=== PATIENT | female | born 1960 | race Two or more races ===

== ENCOUNTER 2024-03-18 06:31 | Emergency (ER) | payer MEDICAID, SELFPAY ==
[2024-03-18 06:31] VITALS: BMI 45.8
[2024-03-18 06:42] VITALS: BP 158/86; PULSE 77; RESP 17; TEMP 37.2; O2SAT 98
--- NOTE | 2024-03-18 06:52 | EDNOTE_ITS ---
<Statement entered by Nhi Steward MD - 03/19/24 09:19> As co-signing physician, I was present and available for consult prn. I concur with the plan and care as documented by the midlevel provider. ED Back Injury Pain RME/HPI General Chief Complaint: Back Pain/Injury Stated Complaint: UPPER BACK PAIN X LAST NIGHT Time Seen by Provider: 03/18/24 06:37 Arrival date/time: 03/18/24 06:31 63-year-old female presents emergency department today complains of the mid upper back pain worse with movement patient reports history of the same. Patient reports no fever nausea vomiting no chest pain or shortness of breath no headache dizziness or weakness Limitations: no limitations Related Data Home Medications ?Medication ?Instructions ?Recorded ?Confirmed cyclobenzaprine 5 mg tablet 5 mg PO QDAY 11/12/19 10/03/20 metformin 500 mg tablet 500 mg PO BID 11/12/19 10/03/20 trazodone 50 mg tablet 50 mg PO ACHS 10/03/20 10/03/20 Previous Rx's ?Medication ?Instructions ?Recorded hydrocodone 5 mg-acetaminophen 325 1 tab PO Q8H PRN pain #10 tabs 04/16/ mg tablet naproxen 500 mg tablet 500 mg PO BID #30 tabs 06/16/23 cyclobenzaprine 10 mg tablet 10 mg PO TID PRN muscle spasm 10 03/18/24 days #30 tab-caps hydrocodone 5 mg-acetaminophen 325 1 tab PO BID PRN pain #10 tabs 03/18/24 mg tablet ibuprofen 800 mg tablet 800 mg PO TID PRN pain #30 tabs 03/18/24 Allergies Allergy/AdvReac Type Severity Reaction Status Date / Time No Known Allergies Allergy Verified 03/18/24 06:33 Review of Systems Review of Systems Systems Reviewed: All systems reviewed, normal except as documented Constitutional Constitutional: Reports system reviewed and no additional complaints, except as documented, Denies fever(s) and Denies headache(s) Eyes Eyes: Reports system reviewed and no additional complaints, except as documented and Denies blurry vision ENT Ears, Nose, Mouth, and Throat: Reports system reviewed and no additional complaints, except as documented, Denies headache(s), Denies nasal congestion and Denies nasal discharge Cardiovascular Cardiovascular: Reports system reviewed and no additional complaints, except as documented, Denies chest pain and Denies dyspnea Respiratory Respiratory: Reports system reviewed and no additional complaints, except as documented, Denies chest congestion, Denies cough and Denies dyspnea Gastrointestinal Gastrointestinal: Reports system reviewed and no additional complaints, except as documented and Denies abdominal pain Musculoskeletal Musculoskeletal: Reports system reviewed and no additional complaints, except as documented and Reports back pain Integumentary/Breasts Skin/Breast: Reports system reviewed and no additional complaints, except as documented and Denies rash Neurologic Neurologic: Reports system reviewed and no additional complaints, except as documented, Reports as per HPI and Denies headache(s) Past Medical History Past Medical History CARDIAC: Positive Hypercholesterolemia and Hypertension; Negative Congestive Heart Failure RESPIRATORY: Positive Sleep Apnea; Negative Chronic Obstructive Pulmonary Disease (COPD) GENITOURINARY: Negative Renal Disease ENDOCRINE: Positive Diabetes Mellitus Type 2; Negative Diabetes Mellitus Type 1 Surgical History SURGICAL: Positive Section Social History SMOKING STATUS: Never smoker ED Exam General Limitations: Present no limitations General appearance: Present alert and in no apparent distress Head Head exam: Present atraumatic, normocephalic and normal inspection Eye Eye exam: Present normal appearance, PERRL and EOMI; Absent conjunctival injection ENT ENT exam: Present normal exam, normal oropharynx and mucous membranes moist Neck Neck exam: Present normal inspection, full ROM and trachea midline Chest Chest inspection: Present normal inspection and symmetric chest wall rise Respiratory Respiratory exam: Present normal lung sounds bilaterally; Absent respiratory dis tress Cardiovascular Cardiovascular exam: Present regular rate, normal rhythm and normal heart sounds Abdominal Exam Abdominal exam: Present soft and normal bowel sounds; Absent distention, tenderness, guarding, rebound or rigidity Extremities Exam Extremities exam: Present normal inspection and full ROM Back Exam Back exam: Present normal inspection, full ROM, tenderness, muscle spasm and paraspinal tenderness; Absent CVA tenderness (R), CVA tenderness (L) or vertebral tenderness Neurological Exam Neurological exam: Present alert, oriented X3 and CN II-XII intact Psychiatric Psychiatric exam: Present normal affect and normal mood Skin Skin exam: Present warm, dry, intact and normal color Course Quality Measures none Orders Category Date Time Status Ketorolac Inj [Toradol Inj] Med 03/18/24 06:53 Discontinued 30 mg IM X1 ONE Vital Signs Vital signs: Vital Signs Temperature 99.0 F 03/18/24 06:42 Pulse Rate 77 03/18/24 06:42 Respiratory Rate 17 03/18/24 06:42 Blood Pressure 158/86 H 03/18/24 06:42 Pulse Oximetry (%) 98 03/18/24 06:42 Oxygen Delivery Method Room Air 03/18/24 06:42 O2 saturation 98% room air within normal limits Back Pain / Injury MDM Narrative MDM Narrative:: 63-year-old female presents emergency department today complains of the mid upper back pain worse with movement patient reports history of the same. Patient reports no fever nausea vomiting no chest pain or shortness of breath no headache dizziness or weakness On exam patient well-appearing patient does not appear ill or toxic patient is no difficulty breathing or swallowing On exam patient does have tenderness left upper back on palpation and worse with movement Symptoms appear to be mild Patient given Toradol shot and discharged home with medication I did explain to the patient for symptoms persist or worsen she may need imaging for further evaluation of her pain Patient discharged home in no distress to follow-up with primary care doctor in the next 24 to 48 hours and for any worsening symptoms to return to the ER immediately Patient data External records reviewed:: [facility] previous records Clinical information provided by:: patient Social determinants that could affect healthcare access:: none Patient has the following chronic illnesses:: See history How is presenting disease/condition affected by chronic disease/condition?: exacerbated by Evaluation data The following diagnostics were reviewed and interpreted by me:: other (specify) (N/A) Lab and/or radiology exams considered but not ordered:: Consider not ordered Interpretation Summary: N/A Medications / Prescriptions Medications or Prescriptions considered but not ordered:: Given Medication administrations:: Medication Administration History Discontinued Medications Ketorolac Tromethamine (Ketorolac Inj 30 Mg/Ml Vial) 30 mg IM X1 ONE Stop: 03/18/24 06:54 Last Admin: 03/18/24 07:01 Dose: 30 mg Documented By: RYAN Given Consultations Consultation(s) initiated? (list below): No Diagnosis Differential diagnosis back pain/injury: lumbar radiculopathy, strain of lumbar region and thoracic back pain Most likely diagnosis given after review of the tests above:: Back pain Admission Indicated Admission indicated?: not indicated Admission Request Was there a request for admission?: No Disposition Plan Disposition Plan: Discharge Discharge Attestation Discharge Attestation: The patient and all family members were given an opportunity to ask questions and understood the discharge instructions. Discharge instructions specifically effects, indications for sooner follow up or return to the emergency department, and the expected course of current diagnosis. Patient condition: Stable Discharge Plan Plan Patient Disposition: HOME (Self Care) Disposition Comment: stable Prescriptions/Referrals Prescriptions/Med Rec: New cyclobenzaprine 10 mg tablet 10 mg PO TID PRN (Reason: muscle spasm) 10 Days Qty: 30 0RF ibuprofen 800 mg tablet 800 mg PO TID PRN (Reason: pain) Qty: 30 0RF hydrocodone-acetaminophen 5-325 mg tablet 1 tab PO BID MDD 10 PRN (Reason: pain) Qty: 10 0RF No Action metformin 500 mg Tablet 500 mg PO BID cyclobenzaprine 5 mg Tablet 5 mg PO QDAY trazodone 50 mg tablet 50 mg PO ACHS hydrocodone-acetaminophen 5-325 mg tablet 1 tab PO Q8H MDD 3 PRN (Reason: pain) Qty: 10 0RF naproxen 500 mg tablet 500 mg PO BID Qty: 30 0RF Problem List Clinical Impression: Back muscle spasm Patient/Caregiver Discharge Instructions Education Materials: Back Safety: Lifting Additional Instructions: Please follow up with your primary care doctor in the next 24-48hrs for any worsening symptoms return here immediately Print Language: Sami Stand Alone Forms: Grace Award Info., Patient Portal Info Letter PA/[employer] Supervising Physician PA/REJI Supervising Physician: Dr. STEWARD
[2024-03-18] MEDS: KETOROLAC INJ 30 MG/ML VIAL IM (07:01)
== END 2024-03-18 07:05 | disposition home or self-care (01) ==
LOC: SERX 07:13
PROVIDERS: Emergency Provider Emergency Medicine; PCP Nurse Practitioner Family
DX: M62.830 Muscle spasm of back (principal)
CPT/HCPCS: 96372; 99283; J1885

== ENCOUNTER 2024-03-29 00:56 | Emergency (ER) | payer MEDICAID, SELFPAY ==
--- NOTE | 2024-03-29 | XR_ITS ---
Examination: CT abdomen and pelvis without contrast. Coronal 3-D reconstructions. Sagittal 2-D reconstructions. Date and time of exam:March 21, 2024 0230 hours Comparison April 16, 2021 INDICATIONS: Onset left-sided flank pain beginning one week ago CTDI: vol (mGy): 16.31 DLP: (mGycm): 1016 Technique: Axial images of the abdomen have been obtained, 3 mm slice thickness Intravenous contrast material has not been administered. Low dose protocols were performed. One or more of the following dose reduction techniques were used; automated exposure control, adjustment of the mA and/or KV according to patient size, use of iterative reconstruction technique. Findings: 5 mm calcified granuloma right middle lobe No focal liver or splenic lesions No gallstones No pancreatic or adrenal mass No renal or ureteral calculi, no hydronephrosis 8mm likely proteinaceous right renal cyst Significant scarring right kidney axial image 111 No renal or ureteral calculi, no hydronephrosis Abdominal aortic calcification no aneurysmal dilatation Normal appendix No bowel obstruction Atrophic uterus No adnexal mass No bladder mass or bladder calculi Moderate osteopenia IMPRESSION: Significant scarring right kidney No renal or ureteral calculi, no hydronephrosis Normal appendix No bladder mass or bladder calculi
[2024-03-29] MEDS: KETOROLAC INJ 30 MG/ML VIAL IM (02:25)
[2024-03-29 08:07] LABS: Alanine Aminotransferase 33 U/L (10-49); Albumin, Serum 4.7 gm/dL (3.4-4.8); Albumin/Globulin Ratio 1.8 (1.2-2.2); Alkaline Phosphatase 119 U/L (46-116); Anion Gap 8 (7-16); Aspartate Amino Transferase 31 U/L (0-34); BUN/Creatinine Ratio 18 Ratio (12-20); Bilirubin,Total 0.5 mg/dL (0.3-1.2); Blood Urea Nitrogen 18 mg/dL (9-23); Calcium 9.5 mg/dL (8.3-10.6); Calcium (Corrected) 9.5 mg/dL (8.5-10.1); Carbon Dioxide 26.9 mMol/L (20.0-31.0); Chloride 104 mMol/L (98-107); Globulin 2.6 gm/dL (2.3-3.5); Glucose 114 mg/dL (74-106); Osmolality,Calculated 280 (275-295); Potassium 3.7 mMol/L (3.4-5.1); Sodium 139 mMol/L (136-145); Total Protein 7.3 gm/dL (5.7-8.2); eGFR > 60 See Note
[2024-03-29 08:08] LABS: Basophils % (Auto) 1 % (0-2.5); Eosinophils # (Auto) 0.1 Thou/mm3 (0.0-0.5); Eosinophils % (Auto) 2 % (0-10); Hematocrit 40.1 % (36.0-46.0); Hemoglobin 13.4 g/dL (12.0-16.0); Immature Granulocytes % (Auto) 0 % (0-0); Immature Granulocytes Auto 0.01 Thou/mm3 (0.00-0.00); Lymphocytes # (Auto) 1.8 Thou/mm3 (1.0-4.8); Lymphocytes % (Auto) 31 % (10-50); Mean Corpuscular HGB Conc 33.4 g/dl (31.0-37.0); Mean Corpuscular Hemoglobin 29.9 pg (25.0-35.0); Mean Corpuscular Volume 90 fL (80-100); Monocytes # (Auto) 0.4 Thou/mm3 (0.0-0.8); Monocytes % (Auto) 7 % (0-12); Neutrophils # (Auto) 3.4 Thou/mm3 (1.8-7.7); Neutrophils % (Auto) 59 % (37-80); Nucleated Red Blood Cell % 0 /100 WBC (0); Platelet Count 195 Thou/mm3 (140-440); Red Blood Count 4.48 Miln/mm3 (4.00-5.20); White Blood Count 5.7 Thou/mm3 (3.6-11.0)
[2024-03-29 14:56] LABS: Clarity,Urine Clear (Clear/Hazy); Collection Type, Urine Clean Catch; Color,Urine Lt Yellow (Lt Yel-Yel)
[2024-03-29 14:57] LABS: Leukocyte Esterase,Urine 1+ (Negative); RBC,Urine 3 /hpf (0-3); Squamous Epithelial Cell,Urine 9 /hpf (0-5); WBC,Urine 6 /hpf (0-5)
[2024-03-29 15:01] LABS: Bilirubin,Urine Negative (Negative); Blood,Urine Negative (Negative); Culture Indicated,Urine Not Indicated; Glucose, Urine Negative (Negative); Ketones,Urine Negative (Negative); Nitrite,Urine Negative (Negative); Protein,Urine Negative (Neg - Trace); Specific Gravity,Urine 1.016 (1.001-1.035); Urobilinogen,Urine Negative mg/dL (0.0-1.0)
== END 2024-03-29 06:00 | disposition home or self-care (01) ==
LOC: SERX 05:53
PROVIDERS: Emergency Provider Emergency Medicine; PCP Nurse Practitioner Family
DX: M54.50 Low back pain, unspecified (principal); R10.9 Unspecified abdominal pain
CPT/HCPCS: 36415; 74176; 80053; 81001; 85025; 96372; 99284; J1885

== ENCOUNTER 2024-07-27 13:16 | Emergency (ER) | payer MEDICAID, SELFPAY ==
[2024-07-27 13:35] VITALS: BP 150/83; PULSE 90; RESP 20; TEMP 36.8; O2SAT 95; BMI 46.8
--- NOTE | 2024-07-27 13:39 | XR_ITS ---
Examination: Duplex scan of the lower extremity, unilateral left Date and time of exam: July 27, 2024 1351 hours INDICATIONS: Left foot swelling and pain beginning one week ago Technique: Duplex scan of the extremity veins using B-mode/grayscale imaging and Doppler spectral analysis and color flow Attention is directed to internal echogenicity, compression and augmentation involving these veins, color flow assessment, spectral analysis Findings: Major deep venous structures in the extremity demonstrate normal course and caliber. There is no evidence of deep vein thrombosis. Normal color flow and spectral analysis Impression: Negative for DVT..
--- NOTE | 2024-07-27 13:44 | PD.EDRME ---
Rapid Medical Screening Exam RME Arrival date/time: 07/27/24 13:16 63-year-old female with a history of type 2 diabetes presents to the emergency room with a chief complaint of swelling and tenderness to her left lower extremity x 3 days. Patient was sent over by primary care provider to rule out DVT. I have greeted and performed a focused initial assessment of this patient. A comprehensive ED assessment and evaluation of the patient, analysis of all test results, and completion of the medical decision making process will be conducted by additional ED providers. Chief Complaint: Ankle/Foot Injury Time Seen by Provider: 07/27/24 13:40 Vital signs: Vital Signs Temperature 98.3 F 07/27/24 13:35 Pulse Rate 90 07/27/24 13:35 Respiratory Rate 20 07/27/24 13:35 Blood Pressure 150/83 H 07/27/24 13:35 Pulse Oximetry (%) 95 07/27/24 13:35 Oxygen Delivery Method Room Air 07/27/24 13:35 Vital signs reviewed by provider: Yes
[2024-07-27 14:39] LABS: Basophils % (Auto) 1 % (0-2.5); Eosinophils # (Auto) 0.2 Thou/mm3 (0.0-0.5); Eosinophils % (Auto) 2 % (0-10); Hematocrit 41.3 % (36.0-46.0); Hemoglobin 13.8 g/dL (12.0-16.0); Immature Granulocytes % (Auto) 0 % (0-0); Immature Granulocytes Auto 0.02 Thou/mm3 (0.00-0.00); Lymphocytes # (Auto) 1.5 Thou/mm3 (1.0-4.8); Lymphocytes % (Auto) 17 % (10-50); Mean Corpuscular HGB Conc 33.4 g/dl (31.0-37.0); Mean Corpuscular Hemoglobin 30.1 pg (25.0-35.0); Mean Corpuscular Volume 90 fL (80-100); Monocytes # (Auto) 0.5 Thou/mm3 (0.0-0.8); Monocytes % (Auto) 6 % (0-12); Neutrophils # (Auto) 6.2 Thou/mm3 (1.8-7.7); Neutrophils % (Auto) 74 % (37-80); Nucleated Red Blood Cell % 0 /100 WBC (0); Platelet Count 261 Thou/mm3 (140-440); RDW Standard Deviation 43.4 fL (36.4-46.3); Red Blood Count 4.58 Miln/mm3 (4.00-5.20); White Blood Count 8.4 Thou/mm3 (3.6-11.0)
[2024-07-27 15:00] LABS: Alanine Aminotransferase 17 U/L (10-49); Albumin, Serum 4.8 gm/dL (3.4-4.8); Albumin/Globulin Ratio 1.7 (1.2-2.2); Alkaline Phosphatase 123 U/L (46-116); Anion Gap 8 (7-16); Aspartate Amino Transferase 21 U/L (0-34); BUN/Creatinine Ratio 13 Ratio (12-20); Bilirubin,Total 0.7 mg/dL (0.3-1.2); Blood Urea Nitrogen 15 mg/dL (9-23); Calcium 10.4 mg/dL (8.3-10.6); Calcium (Corrected) 10.4 mg/dL (8.5-10.1); Carbon Dioxide 27.6 mMol/L (20.0-31.0); Chloride 104 mMol/L (98-107); Creatinine (Component) 1.2 mg/dL (0.6-1.3); Globulin 2.9 gm/dL (2.3-3.5); Glucose 98 mg/dL (74-106); Osmolality,Calculated 280 (275-295); Potassium 4.2 mMol/L (3.4-5.1); Sodium 140 mMol/L (136-145); Total Protein 7.7 gm/dL (5.7-8.2); eGFR 51 See Note
[2024-07-27 15:11] LABS: Partial Thromboplastin Time 28.3 Seconds (22.0-36.0); Prothrombin Time 11.3 Seconds (9.0-12.2)
--- NOTE | 2024-07-27 16:37 | EDNOTE_ITS ---
<Statement entered by Nhi Steward MD - 07/27/24 16:52> As co-signing physician, I was present and available for consult prn. I concur with the plan and care as documented by the midlevel provider. Lower Extremity Injury RME/HPI General Chief Complaint: Ankle/Foot Injury Stated Complaint: LEFT FOOT SWOLLEN X 1 WK; PCP SENT FOR ULTRASOUND Time Seen by Provider: 07/27/24 13:40 Source: patient Arrival date/time: 07/27/24 13:16 63-year-old female with a history of type 2 diabetes presents to the emergency room with a chief complaint of swelling and tenderness to her left lower extremity x 3 days. Patient was sent over by primary care provider to rule out DVT. Mode of arrival: ambulatory Limitations: no limitations RME / HPI RME / HPI Narrative: 07/27/24 13:16 63-year-old female with a history of type 2 diabetes presents to the emergency room with a chief complaint of swelling and tenderness to her left lower extremity x 3 days. Patient was sent over by primary care provider to rule out DVT. I have greeted and performed a focused initial assessment of this patient. A comprehensive ED assessment and evaluation of the patient, analysis of all test results, and completion of the medical decision making process will be conducted by additional ED providers. Related Data Home Medications ?Medication ?Instructions ?Recorded ?Confirmed cyclobenzaprine 5 mg tablet 5 mg PO QDAY 11/12/1906/20 metformin 500 mg tablet 500 mg PO BID 11/12/1910/03 trazodone 50 mg tablet 50 mg PO ACHS 10/03/2010/03 Previous Rx's ?Medication ?Instructions ?Recorded hydrocodone 5 mg-acetaminophen 325 1 tab PO Q8H PRN pa in #10 tabs 04/16/21 mg tablet naproxen 500 mg tablet 500 mg PO BID #30 tabs 06/15 hydrocodone 5 mg-acetaminophen 325 1 tab PO BID PRN pa in #10 tabs 03/18/24 mg tablet ibuprofen 800 mg tablet 800 mg PO TID PRN pain #30 t abs 03/18/24 cephalexin 500 mg capsule 500 mg PO BID 7 days #14 cap s 07/27/24 Allergies Allergy/AdvReac Type Severity Reaction Status Date / Time No Known Allergies Allergy Verified 07/27/24 13:20 Review of Systems Review of Systems Systems Reviewed: All systems reviewed, normal except as documented Constitutional Constitutional: Reports system reviewed and no additional complaints, except as documented, Denies fatigue, Denies fever(s), Denies headache(s) and Denies weakness Eyes Eyes: Reports system reviewed and no additional complaints, except as documented, Denies blurry vision and Denies change in vision ENT Ears, Nose, Mouth, and Throat: Reports system reviewed and no additional c omplaints, except as documented, Denies otalgia, Denies headache(s), Denies nasal congestion, Denies throat swelling and Denies vertigo Cardiovascular Cardiovascular: Reports system reviewed and no additional complaints, except as documented, Denies chest pain, Denies dyspnea and Denies dyspnea on exertion Respiratory Respiratory: Reports system reviewed and no additional complaints, except as documented, Denies chest congestion, Denies cough, Denies dyspnea, Denies dyspnea on exertion and Denies wheezing Gastrointestinal Gastrointestinal: Reports system reviewed and no additional complaints, except as documented, Denies abdominal pain, Denies cramping, Denies nausea and Denies vomiting Genitourinary Genitourinary: Reports system reviewed and no additional complaints, except as documented Musculoskeletal Musculoskeletal: Reports system reviewed and no additional complaints, except as documented, Denies back pain, Reports joint swelling and Reports muscle weakness Integumentary/Breasts Skin/Breast: Reports system reviewed and no additional complaints, except as documented and Denies wounds Neurologic Neurologic: Reports system reviewed and no additional complaints, except as documented, Denies confusion, Denies headache(s), Denies lack of coordination, Denies vertigo and Denies weakness Psychiatric Psychiatric: Reports system reviewed and no additional complaints, except as documented, Denies anxiety, Denies confusion, Denies depression, Denies paranoia, Denies suicidal ideation and Denies tactile hallucinations Endocrine Endocrine: Reports system reviewed and no additional complaints, except as documented and Denies fatigue Hematologic/Lymphatic Hematologic/Lymphatic: Reports system reviewed and no additional complaints, except as documented and Denies lymphadenopathy Allergic/Immunologic Allergic/Immunologic: Reports system reviewed and no additional complaints, except as documented, Denies throat swelling, Denies urticaria and Denies wheezing Past Medical History Past Medical History CARDIAC: Positive Hypercholesterolemia and Hypertension; Negative Congestive Heart Failure RESPIRATORY: Positive Sleep Apnea; Negative Chronic Obstructive Pulmonary Disease (COPD) GENITOURINARY: Negative Renal Disease ENDOCRINE: Positive Diabetes Mellitus Type 2; Negative Diabetes Mellitus Type 1 Surgical History SURGICAL: Positive Section Social History SMOKING STATUS: Never smoker ED Exam General Limitations: Present no limitations General appearance: Present alert and in no apparent distress Head Head exam: Present atraumatic Eye Eye exam: Present normal appearance, PERRL and EOMI ENT ENT exam: Present normal exam, normal oropharynx and mucous membranes moist Neck Neck exam: Present normal inspection, full ROM and trachea midline Chest Chest inspection: Present normal inspection and symmetric chest wall rise Respiratory Respiratory exam: Present normal lung sounds bilaterally Cardiovascular Cardiovascular exam: Present regular rate, normal rhythm and normal heart sounds Abdominal Exam Abdominal exam: Present soft and normal bowel sounds Extremities Exam Extremities exam: Present normal inspection and full ROM Expanded Lower Extremity Exam Hip/Pelvis exam: Present normal inspection Upper leg exam: Present normal inspection Knee exam: Present normal inspection Lower leg exam: Present normal inspection, swelling and Homans' sign Ankle exam: Present normal inspection Foot/toe exam: Present normal inspection Gait: observed and normal Back Exam Back exam: Present normal inspection and full ROM Neurological Exam Neurological exam: Present alert, oriented X3 and CN II-XII intact Psychiatric Psychiatric exam: Present normal affect and normal mood Skin Skin exam: Present warm, dry, intact and normal color Course Quality Measures none Orders Category Date Time Status US venous doppler LE LT Stat Exams 07/27/24 13:39 Completed CBC Stat Lab 07/27/24 14:24 Completed CMP [Comprehensive Metabolic Panel] Stat Lab 07/27/24 14:24 Completed PT [Prothrombin Time with INR] Stat Lab 07/27/24 14:24 Completed PTT [Partial Thromboplastin Time] Stat Lab 07/27/24 14:24 Completed Vital Signs Vital signs: Vital Signs Temperature 98.3 F 07/27/24 13:35 Pulse Rate 90 07/27/24 13:35 Respiratory Rate 20 07/27/24 13:35 Blood Pressure 150/83 H 07/27/24 13:35 Pulse Oximetry (%) 95 07/27/24 13:35 Oxygen Delivery Method Room Air 07/27/24 13:35 O2 saturation 95% within normal limits Extremity Injury, Lower MDM Narrative MDM Narrative:: 63-year-old female with a history of type 2 diabetes presents to the emergency room with a chief complaint of swelling and tenderness to her left lower extremity x 3 days. Patient was sent over by primary care provider to rule out DVT. Patient is hemodynamically stable and in no apparent distress Physical examination shows tenderness and swelling to the patient's left lower extremity. The patient has some tenderness to the calf area with a positive Homans' sign as well as some warmth to the area. An ultrasound Doppler was completed and was negative for any DVT. Patient was discharged with antibiotics for cellulitis Patient was discharged and educated to follow-up with primary care provider in the next 24 to 48 hours and return to the emergency room for any evidence of worsening signs or symptoms Patient data External records reviewed:: [facility] previous records Clinical information provided by:: patient Social determinants that could affect healthcare access:: none Patient has the following chronic illnesses:: No chronic illness How is presenting disease/condition affected by chronic disease/condition?: no chronic disease Evaluation data The following diagnostics were reviewed and interpreted by me:: lab results and radiology exam(s) Lab and/or radiology exams considered but not ordered:: Labs and radiology exams considered and ordered Interpretation Summary: Ultrasound Doppler-Findings: Major deep venous structures in the extremity demonstrate normal course and caliber. There is no evidence of deep vein thrombosis. Normal color flow and spectral analysis Impression: Negative for DVT.. Medications / Prescriptions Medications or Prescriptions considered but not ordered:: No medication given Medication administrations:: No medication given Consultations Consultation(s) initiated? (list below): No Diagnosis Extremity Injury, Lower Differential Diagnosis: other (Cellulitis/DVT) Most likely diagnosis given after review of the tests above:: Cellulitis Admission Indicated Admission indicated?: not indicated Admission Request Was there a request for admission?: No Disposition Plan Disposition Plan: Discharge Discharge Attestation Discharge Attestation: The patient and all family members were given an opportunity to ask questions and understood the discharge instructions. Discharge instructions specifically effects, indications for sooner follow up or return to the emergency department, and the expected course of current diagnosis. Patient condition: Stable Discharge Plan Plan Patient Disposition: HOME (Self Care) Discharge Disposition comment: Stable Prescriptions/Referrals Prescriptions/Med Rec: New cephalexin 500 mg capsule 500 mg PO BID 7 Days Qty: 14 0RF No Action metformin 500 mg Tablet 500 mg PO BID cyclobenzaprine 5 mg Tablet 5 mg PO QDAY trazodone 50 mg tablet 50 mg PO ACHS hydrocodone-acetaminophen 5-325 mg tablet 1 tab PO Q8H MDD 3 PRN (Reason: pain) Qty: 10 0RF ibuprofen 800 mg tablet 800 mg PO TID PRN (Reason: pain) Qty: 30 0RF hydrocodone-acetaminophen 5-325 mg tablet 1 tab PO BID MDD 10 PRN (Reason: pain) Qty: 10 0RF naproxen 500 mg tablet 500 mg PO BID Qty: 30 0RF Referrals: Belkys Kimbrough PA-C [Primary Care Provider] - In 1 week Problem List Clinical Impression: Cellulitis of left leg Patient/Caregiver Discharge Instructions Education Materials: Discharge Instructions for Cellulitis, ED Cellulitis Additional Instructions: Please follow-up with your primary care provider in the next 24 to 48 hours Your ultrasound of your lower extremity was negative for any blood clot. Antibiotics are sent to your pharmacy please pick them up and take them as indicated For any evidence of worsening signs or symptoms return to the emergency room immediately Print Language: Urdu Stand Alone Forms: Grace Award Info., Patient Portal Info Letter DEIDRE/REJI Supervising Physician DEIDRE/REJI Supervising Physician: Dr. STEWARD
== END 2024-07-27 18:29 | disposition home or self-care (01) ==
PROVIDERS: Nurse Practitioner Family; Emergency Provider Emergency Medicine; PCP Physician Assistant
DX: L03.116 Cellulitis of left lower limb (principal); E11.9 Type 2 diabetes mellitus without complications
CPT/HCPCS: 36415; 80053; 85025; 85610; 85730; 93971; 99284

== ENCOUNTER → 2024-08-23 | Outpatient (CLI) | payer MEDICAID, SELFPAY ==
--- NOTE | 2024-08-23 10:46 | XR_ITS ---
Examination: PA lateral chest 2 views TECHNIQUE: Upright PA lateral chest 2 views Date and time: August 23, 2024 1058 hours INDICATIONS: Coughing beginning 2 weeks ago. FINDINGS: Normal heart size. Lungs are clear. The osseous structures are intact IMPRESSION: No active disease
== END | disposition home or self-care (01) ==
DX: R05.9 Cough, unspecified (principal)
CPT/HCPCS: 71046

== ENCOUNTER 2024-10-25 10:38 | Outpatient (AMB) | payer MEDICAID, SELFPAY ==
--- NOTE | 2024-10-25 11:12 | GYNCLNT_ITS ---
Vital Signs 10/25/24 11:13 Height 1.52 m Height Method Measured Weight 109.939 kg Weight Measurement Method Standing Scale BMI 47.3 BP 114/80 Blood Pressure Source Automatic Cuff Blood Pressure Location Right Upper Arm Position Sitting Respiration 17 Pulse 70 Pulse Source Monitor Temp 98.0 F Temp Source Temporal Artery Scan Pulse Oximetry (%) 95 Oxygen Delivery Method Room Air Allergies/Home Meds Allergies & Medications Allergies No Known Allergies Allergy (Verified 10/25/24 11:13) Medication Reconciliation cyclobenzaprine 5 mg tablet 5 mg PO QDAY 11/12/19 [History Confirmed 10/25/24] metformin 500 mg tablet 500 mg PO BID 11/12/19 [History Confirmed 10/25/24] trazodone 50 mg tablet 50 mg PO ACHS 10/03/20 [History Confirmed 10/25/24] hydrocodone 5 mg-acetaminophen 325 mg tablet 1 tab PO Q8H PRN pain #10 tabs 04/16/21 [Rx Confirmed 10/25/24] naproxen 500 mg tablet 500 mg PO BID #30 tabs 06/16/23 [Rx Confirmed 10/25/24] hydrocodone 5 mg-acetaminophen 325 mg tablet 1 tab PO BID PRN pain #10 tabs 03/18/24 [Rx Confirmed 10/25/24] ibuprofen 800 mg tablet 800 mg PO TID PRN pain #30 tabs 03/18/24 [Rx Confirmed 10/25/24] Intake Visit Data Collection New Patient or Established: Established Patient (seen at [facility] within 3 years) Reason for Visit:: REF COLPO CONSULT Consent obtained for Telemed Visit: No Seen by Clinical Staff ONLY (RN/MA): No Plow Shaker Required: No Do You Feel Safe at Home: Yes Authorities Contacted: N/A PCP or OBGYN visit in last 3 months: Yes Date of Last PCP or OBGYN visit: 07/27/24 Hx Now: No Are you currently on any form of Control: No Last menstrual period: 03/02/09 Pain Present Currently: No Pain Scale Used: Silva-Roach/Numerical Pain scale:: 0 Smoking Status Smoking Status: Never smoker Manager Statistics history Manager Statistics History Menstrual regularity: regular Flow: normal Monthly: Yes How many days does period last: 7 Age at menarche: 12 Menopausal: Yes If menopausal, at what age did it occur: 48 Currently sexually active: Yes 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 1. Little interest or pleasure in doing things: not at all 2. Feeling down, depressed, or hopeless: not at all Total score: 0 PHQ-9 3. Trouble falling or staying asleep, or sleeping too much: Not at all 4. Feeling tired or having little energy: Not at all 5. Poor appetite or overeating: Not at all 6. Feeling bad about yourself - or that you are a failure or have let yourself or your family down: Not at all 7. Trouble concentrating on things, such as reading the newspaper or watching television: Not at all 8. Moving or speaking so slowly that other people could have noticed? - Or the opposite - being so fidgety or restless that you have been moving around a lot more than usual: not at all 9. Thoughts that you would be better off or of hurting yourself in some way: Not at all Total score: 0 If you checked off any problems, how difficult have these problems made it for you to do your work, take care of things at home, or get along with other people?: not difficult at all Source: Developed by Drs. Alvarado Ocampo, Love Stein, Cuong Bella and colleagues, with an educational dorita from [employer]. Social History Living Situation History Lives With: Family Housing: House Tobacco History Smoking Status: Never smoker Alcohol History Alcohol Intake: Never Domestic Abuse History Do You Feel Safe at Home: Yes History of Present Illness HPI Narrative Chief Complaint Consultation for abnormal pap smear Patient is a 63-year-old presenting for consultation regarding an abnormal Pap smear. She had a Pap smear performed in April of this year at Dr. Pablo's office at [facility], which revealed ASCUS (Atypical Squamous Cells of Undetermined Significance) with HPV positive results. HPV genotyping was not performed at that time. The patient has not reported any specific sympt oms related to the abnormal Pap smear findings. She reports a history of urinary frequency and incontinence but denies any other medical complications. Medical History: - Diabetes - Hypercholesterolemia - Urinary frequency/incontinence Surgical History: - Multiple C-sections Obstetric History: - GPAL: A0 L4 - All deliveries were by C-sections Diagnostic Test Results and Labs: - Pap smear (April 2024): ASCUS (Atypical Squamous Cells of Undetermined Significance) - HPV test (April 2024): Positive Exam General General Appearance: alert, in no apparent distress and healthy appearing Head Head exam: atraumatic Neck Neck exam: Present normal inspection and trachea midline Chest Chest inspection: Present normal inspection and symmetric chest wall rise External exam: Present normal external exam; Absent tenderness Neuro Neurological exam: Present oriented X3 Psych Psychiatric exam: Present normal affect and normal mood Office Procedures OB Clinic LOC & Office Proc's Nursing/Assessment Patient Status: Established Patient OB Clinic Nursing Assessment: Medication Reconciliation, Update PMH in EMR and Vital Signs OB Clinic Coordination of Care: Complex Care and Chronic Disease 1-5, Consent,records obtained, informed consent and Education Simp Pt/Fam Established Patient Charge Established Patient Point Assignment: 75 Established Patient Point Charge: EP Level 2 (40-75) Assessment & Plan Diagnosis / Problem List (1) ASCUS (atypical squamous cells of undetermined significance) on gynecologic Papanicolaou smear complicating , antepartum: Status: Acute Plan Abnormal Pap smear (ASCUS) with positive HPV Assessment: Patient had a Pap smear in April [address] Pablo's office at [facility], which showed Atypical Squamous Cells of Undetermined Significance (ASCUS) with positive HPV test. HPV genotyping was not performed at that time. This represents the least severe category of cervical cytologic abnormalities. The combination of ASCUS and positive HPV increases the risk of progression to higher-grade lesions or cervical cancer. Given the patient's age of 63, there is a lower likelihood of finding cancer or precancer, as these conditions are more common in the forties and fifties. Plan: - Perform colposcopy with cervical biopsy in office - Obtain 2 biopsy samples - Informed consent obtained; patient advised of procedure details, including use of speculum and colposcope - Patient chose to proceed without sedation after being offered the option - HPV subtyping to be performed on biopsy specimen, focusing on types 16, 18, and 45 - Follow-up plan based on biopsy results: If high-risk HPV subtypes (16, 18, or 45) are positive, consider cervical conization - If high-risk HPV subtypes are negative, repeat biopsy in one year - Submit insurance authorization for colposcopy procedure - Schedule colposcopy appointment and contact patient with details
[2024-10-25 11:13] VITALS: BP 114/80; PULSE 70; RESP 17; TEMP 36.7; O2SAT 95; BMI 47.3
== END 2024-10-25 11:43 | disposition home or self-care (01) ==
LOC: HODSOBC 10:38
PROVIDERS: Supervising Provider Obstetrics & Gynecology; Visit Provider Obstetrics & Gynecology
DX: R87.610 Atypical squamous cells of undetermined significance on cytologic smear of cervix (ASC-US) (principal); R87.810 Cervical high risk human papillomavirus (HPV) DNA test positive
CPT/HCPCS: 99212; G0463

== ENCOUNTER 2024-11-30 08:39 | Outpatient (AMB) | payer MEDICAID, SELFPAY ==
--- NOTE | 2024-11-30 09:05 | AMB.GYNCLNOT ---
Vital Signs 11/30/24 09:06 Height 1.52 m Height Method Stated Weight 113.001 kg Weight Measurement Method Standing Scale BMI 48.9 BP 137/60 H Blood Pressure Source Automatic Cuff Blood Pressure Location Left Upper Arm Position Sitting Respiration 16 Pulse 87 Pulse Source Monitor Temp 98.2 F Temp Source Oral Pulse Oximetry (%) 99 Oxygen Delivery Method Room Air Allergies/Home Meds Allergies & Medications Allergies No Known Allergies Allergy (Verified 11/30/24 09:07) Medication Reconciliation cyclobenzaprine 5 mg tablet 5 mg PO QDAY 11/12/19 [History Confirmed 11/30/24] metformin 500 mg tablet 500 mg PO BID 11/12/19 [History Confirmed 11/30/24] trazodone 50 mg tablet 50 mg PO ACHS 10/03/20 [History Confirmed 11/30/24] hydrocodone 5 mg-acetaminophen 325 mg tablet 1 tab PO Q8H PRN pain #10 tabs 04/16/21 [Rx Confirmed 11/30/24] naproxen 500 mg tablet 500 mg PO BID #30 tabs 06/16/23 [Rx Confirmed 11/30/24] hydrocodone 5 mg-acetaminophen 325 mg tablet 1 tab PO BID PRN pain #10 tabs 03/18/24 [Rx Confirmed 11/30/24] ibuprofen 800 mg tablet 800 mg PO TID PRN pain #30 tabs 03/18/24 [Rx Confirmed 11/30/24] Intake Visit Data Collection New Patient or Established: Established Patient (seen at [facility]) Reason for Visit:: COLPO Seen by Clinical Staff ONLY (RN/MA): No Flash Drier Operator Required: No Do You Feel Safe at Home: Yes Authorities Contacted: N/A PCP or OBGYN visit in last 3 months: Yes Date of Last PCP or OBGYN visit: 10/25/24 Hx Now: No Are you currently on any form of Control: No Pain Present Currently: No Pain Scale Used: Silva-Roach/Numerical Pain scale:: 0 Smoking Status Smoking Status: Never smoker 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 1. Little interest or pleasure in doing things: not at all 2. Feeling down, depressed, or hopeless: not at all Total score: 0 PHQ-9 3. Trouble falling or staying asleep, or sleeping too much: Not at all 4. Feeling tired or having little energy: Not at all 5. Poor appetite or overeating: Not at all 6. Feeling bad about yourself - or that you are a failure or have let yourself or your family down: Not at all 7. Trouble concentrating on things, such as reading the newspaper or watching television: Not at all 8. Moving or speaking so slowly that other people could have noticed? - Or the opposite - being so fidgety or restless that you have been moving around a lot more than usual: not at all 9. Thoughts that you would be better off or of hurting yourself in some way: Not at all Total score: 0 If you checked off any problems, how difficult have these problems made it for you to do your work, take care of things at home, or get along with other people?: not difficult at all Source: Developed by Drs. Alvarado Ocampo, Love Stein, Cuong Bella and colleagues, with an educational dorita from [employer]. Depression screen completed yes Social History Living Situation History Lives With: Family Housing: House Tobacco History Smoking Status: Never smoker Alcohol History Alcohol Intake: Never Domestic Abuse History Do You Feel Safe at Home: Yes History of Present Illness HPI Narrative Liset Virgen presents for a follow-up visit with planned biopsies that were deferred due to active infections. The patient reports having a urinary tract infection for which she has been taking prescribed oral antibiotics since Thursday, making today the third day of treatment on a 7-day course. She also reports vaginal symptoms including discharge and odor, which she describes as having been present for an unspecified duration. During the attempted examination, the patient experienced significant pain and discomfort, particularly when the clinician attempted to introduce the speculum. She reports itching in the areas being examined. The patient's symptoms appear to be interfering with the planned procedure, as the examination had to be discontinued due to her discomfort and the presence of inflammation. Medications: - Antibiotics for UTI for 7 days, started Thursday, prescribed by doctor Exam Narrative Physical exam: - Genitourinary: Vaginal area appears red and inflamed. Solid mass present with scarring of the vaginal mucosa. Unable to introduce speculum without causing significant pain. Vaginal discharge present with odor noted on examination. General General Appearance: alert, in no apparent distress and healthy appearing Head Head exam: atraumatic Neck Neck exam: Present normal inspection and trachea midline Chest Chest inspection: Present normal inspection and symmetric chest wall rise External exam: Present normal external exam; Absent tenderness Neuro Neurological exam: Present oriented X3 Psych Psychiatric exam: Present normal affect and normal mood Office Procedures OBC Clinic LOC & Office Proc's Nursing/Assessment Patient Status: Established Patient OB Clinic Nursing Assessment: Medication Reconciliation, Update PMH in EMR and Vital Signs OB Clinic Coordination of Care: Education Complex Pt/Fam, Consent,records obtained, informed consent, Lab and Imaging orders, Results/Orders obtained and Staff clarify orders Miscellaneous Interventions: Pelvic no cultures Established Patient Charge Established Patient Point Assignment: 95 Established Patient Point Charge: EP Level 3 (80-115) In Clinic Procedures COLPOSCOPY OF VAGINA W/CERVIX IF PRESENT: Yes Assessment & Plan Diagnosis / Problem List (1) ASCUS (atypical squamous cells of undetermined significance) on gynecologic Papanicolaou smear complicating , antepartum: Status: Acute Plan Bacterial vaginitis Assessment: Patient has bacterial vaginitis with vaginal discharge, odor, and significant inflammation noted on examination. The vaginal mucosa shows scarring and inflammation severe enough to prevent speculum insertion without causing significant pain. This infection needs to be treated before any planned procedures can be performed to avoid spreading infection. Plan: - Prescribe vaginal antibiotic cream for 7 days - Defer planned biopsy procedure until after completion of treatment - Schedule procedure after 7-day treatment course, to be performed under sedation in hospital setting similar to colonoscopy sedation Urinary tract infection Assessment: Patient has UTI and is currently taking oral antibiotics prescribed by her doctor, started on Thursday (3 days of treatment completed as of visit date). Patient reports taking prescribed antibiotics for 7-day course. Plan: - Continue current oral antibiotic course for full 7 days as prescribed - Current antibiotic should adequately cover bladder infection Solid vaginal mass Assessment: Patient has a solid mass with associated vaginal mucosal scarring. Physical examination reveals inability to introduce speculum without causing significant pain due to associated inflammation and infection. Biopsy of this mass-like structure is planned but deferred due to current infectious process. Plan: - Defer biopsy until after treatment of vaginal infection - Perform examination and biopsy under anesthesia in hospital setting - Staff will coordinate scheduling for procedure after completion of antibiotic treatment
[2024-11-30 09:06] VITALS: BP 137/60; PULSE 87; RESP 16; TEMP 36.8; O2SAT 99; BMI 48.9
== END 2024-11-30 09:47 | disposition home or self-care (01) ==
LOC: HODSOBC 08:39
PROVIDERS: Supervising Provider Obstetrics & Gynecology; Visit Provider Obstetrics & Gynecology
DX: N76.0 Acute vaginitis (principal); N39.0 Urinary tract infection, site not specified; N89.8 Other specified noninflammatory disorders of vagina; E11.9 Type 2 diabetes mellitus without complications; I10 Essential (primary) hypertension; Z79.84 Long term (current) use of oral hypoglycemic drugs; Z79.899 Other long term (current) drug therapy; Z53.8 Procedure and treatment not carried out for other reasons
CPT/HCPCS: 57420; 99213; J3490; G0463

== ENCOUNTER 2025-02-01 11:28 | Outpatient (AMB) | payer MEDICAID, SELFPAY ==
[2025-02-01 11:36] VITALS: BP 135/62; PULSE 87; RESP 18; TEMP 36.1; O2SAT 98; BMI 50.4
--- NOTE | 2025-02-01 11:36 | GYNCLNT_ITS ---
Vital Signs 02/01/25 11:36 Height 1.52 m Height Method Stated Weight 116.573 kg Weight Measurement Method Standing Scale BMI 50.4 BP 135/62 H Blood Pressure Source Automatic Cuff Blood Pressure Location Left Upper Arm Position Sitting Respiration 18 Pulse 87 Pulse Source Monitor Temp 97 F Temp Source Temporal Artery Scan Pulse Oximetry (%) 98 Oxygen Delivery Method Room Air Allergies/Home Meds Allergies & Medications Allergies No Known Allergies Allergy (Verified 02/01/25 11:41) Medication Reconciliation metformin 500 mg tablet 500 mg PO BID 11/12/19 [History Confirmed 02/01/25] amlodipine 10 mg tablet 10 mg PO DAILY 02/01/25 [History Confirmed 02/01/25] atorvastatin 20 mg tablet 20 mg PO DAILY 02/01/25 [History Confirmed 02/01/25] Intake Visit Data Collection New Patient or Established: Established Patient (seen at [facility] within 3 years) Reason for Visit:: PREOP Seen by Clinical Staff ONLY (RN/MA): No Gang Sawyer Required: No Do You Feel Safe at Home: Yes Authorities Contacted: N/A PCP or OBGYN visit in last 3 months: Yes Hx Now: No Are you currently on any form of Control: No Pain Present Currently: No Pain Scale Used: Silva-Roach/Numerical Pain scale:: 0 Smoking Status Smoking Status: Never smoker Immunizations Flu Vaccine in the Last 12 Months: No Flu Vaccine Exclusion Criteria: No Exclusion Criteria 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 Menstrual regularity: regular Flow: normal Monthly: Yes Menopausal: No 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 1. Little interest or pleasure in doing things: not at all 2. Feeling down, depressed, or hopeless: not at all Total score: 0 PHQ-9 3. Trouble falling or staying asleep, or sleeping too much: Not at all 4. Feeling tired or having little energy: Not at all 5. Poor appetite or overeating: Not at all 6. Feeling bad about yourself - or that you are a failure or have let yourself or your family down: Not at all 7. Trouble concentrating on things, such as reading the newspaper or watching television: Not at all 8. Moving or speaking so slowly that other people could have noticed? - Or the opposite - being so fidgety or restless that you have been moving around a lot more than usual: not at all 9. Thoughts that you would be better off or of hurting yourself in some way: Not at all Total score: 0 If you checked off any problems, how difficult have these problems made it for you to do your work, take care of things at home, or get along with other people?: not difficult at all Source: Developed by Drs. Alvarado Ocampo, Love Stein, Cuong Bella and colleagues, with an educational dorita from [employer]. Depression screen completed yes Social History Living Situation History Lives With: Family Housing: House Tobacco History Smoking Status: Never smoker Alcohol History Alcohol Intake: Never Domestic Abuse History Do You Feel Safe at Home: Yes History of Present Illness HPI Narrative Liset Virgen presents for pre-procedural consultation and questions, scheduled for a procedure tomorrow morning. She has sleep apnea and uses a machine for this condition. The patient cares for her disabled at home, assisting with transfers from bed to chair and general nursing care. Her grandson will be available to help her tomorrow following the procedure. The patient lives with her disabled whom she provides care for, including assistance with transfers from bed to chair and general nursing care. She has a grandson who provides assistance when needed. ROS: Respiratory: Positive for sleep apnea. Negative except as stated above, limited to CARD CUTTER HELPER and pertinent complaints. Exam General General Appearance: alert, in no apparent distress and healthy appearing Head Head exam: atraumatic Neck Neck exam: Present normal inspection and trachea midline Chest Chest inspection: Present normal inspection and symmetric chest wall rise External exam: Present normal external exam; Absent tenderness Neuro Neurological exam: Present oriented X3 Psych Psychiatric exam: Present normal affect and normal mood Office Procedures OBC Clinic LOC & Office Proc's Nursing/Assessment Patient Status: Established Patient OB Clinic Nursing Assessment: Medication Reconciliation, Update PMH in EMR and Vital Signs OB Clinic Coordination of Care: Consent,records obtained, informed consent, Education Simp Pt/Fam, Lab and Imaging orders, Results/Orders obtained and Staff clarify orders Established Patient Charge Established Patient Point Assignment: 80 Established Patient Point Charge: EP Level 3 (80-115) Assessment & Plan Diagnosis / Problem List (1) ASCUS with positive high risk HPV: Status: Acute Plan Cervical Lesion Requiring Biopsy: - Patient scheduled for cervical procedure with biopsy. - Anticipate precancerous findings rather than invasive cancer based on current evaluation. - Sleep apnea noted as comorbid condition requiring perioperative management. Plan: - Cervical procedure scheduled for tomorrow at 8:30 AM with check-in at 7:30 AM. - General anesthesia planned with supplemental oxygen via mask due to sleep apnea. - Procedure duration approximately 5 minutes with total anesthesia time 15 minutes. - Post-operative restrictions for 72 hours: ? No vaginal penetration (no sex, douching, tampons). ? Avoid heavy lifting for couple days given patient's caregiving responsibilities. ? No other activity restrictions; patient may shower, eat, travel normally. - Biopsy results available in 7 days with phone call notification. - If cancer diagnosed, referral to gynecologic oncologist. - If precancerous lesion, current procedure should be sufficient treatment. - Patient counseled that radiation therapy precedes surgery for this cancer type if malignancy confirmed. Advanced Care Planning Advance care planning discussed with:: patient
== END 2025-02-01 11:48 | disposition home or self-care (01) ==
LOC: HODSOBC 11:28
PROVIDERS: Supervising Provider Obstetrics & Gynecology; Visit Provider Obstetrics & Gynecology
DX: R87.610 Atypical squamous cells of undetermined significance on cytologic smear of cervix (ASC-US) (principal); R87.810 Cervical high risk human papillomavirus (HPV) DNA test positive
CPT/HCPCS: 99213; G0463

== ENCOUNTER 2025-02-02 06:50 | Day surgery (SDC) | payer MEDICAID, SELFPAY ==
[2025-02-01 07:51] VITALS: BMI 50.3
--- NOTE | 2025-02-01 08:05 | EKG_ITS ---
[facility] Test Date: 2025-02-01 Pat Name: ARTIS MILLER Department: Room: - Gender: Female Systems Analyst: WOJCIECH : 1960 Requested By: Jorge Keller Order Number: [id number] Reading MD: Jorge Keller Measurements Intervals [place] Rate: 72 P: 55 NM: 155 QRS: 34 QRSD: 87 T: 25 QT: 399 QTc: 439 Interpretive Statements SINUS RHYTHM MODERATE T-WAVE ABNORMALITY, CONSIDER ANTEROLATERAL ISCHEMIA [-0.1+ mV T WAVE IN V3-V6] Compared to ECG 05/18/2023 19:44:37 T-wave abnormality now present Possible ischemia now present Ventricular premature complex(es) no longer present /store/S0/[id number]/ecg/[id number].pdf
[2025-02-01 08:50] LABS: Basophils # (Auto) 0.0 Thou/mm3 (0.0-0.2); Basophils % (Auto) 1 % (0-2.5); Eosinophils # (Auto) 0.2 Thou/mm3 (0.0-0.5); Eosinophils % (Auto) 3 % (0-10); Hematocrit 43.0 % (36.0-46.0); Hemoglobin 13.6 g/dL (12.0-16.0); Immature Granulocytes Auto 0.02 Thou/mm3 (0.00-0.00); Lymphocytes # (Auto) 1.8 Thou/mm3 (1.0-4.8); Lymphocytes % (Auto) 31 % (10-50); Mean Corpuscular HGB Conc 31.6 g/dl (31.0-37.0); Mean Corpuscular Hemoglobin 28.9 pg (25.0-35.0); Mean Corpuscular Volume 91 fL (80-100); Monocytes # (Auto) 0.4 Thou/mm3 (0.0-0.8); Monocytes % (Auto) 7 % (0-12); Neutrophils # (Auto) 3.4 Thou/mm3 (1.8-7.7); Neutrophils % (Auto) 59 % (37-80); Nucleated Red Blood Cell # 0.00 Thou/mm3 (0.00-0.00); Nucleated Red Blood Cell % 0 /100 WBC (0); Platelet Count 232 Thou/mm3 (140-440); RDW Standard Deviation 46.4 fL (36.4-46.3); Red Blood Count 4.71 Miln/mm3 (4.00-5.20); White Blood Count 5.8 Thou/mm3 (3.6-11.0)
[2025-02-01 09:13] LABS: Alanine Aminotransferase 26 U/L (10-49); Albumin, Serum 4.6 gm/dL (3.4-4.8); Albumin/Globulin Ratio 1.6 (1.2-2.2); Alkaline Phosphatase 133 U/L (46-116); Anion Gap 6 (7-16); Aspartate Amino Transferase 28 U/L (0-34); BUN/Creatinine Ratio 12 Ratio (12-20); Bilirubin,Total 0.5 mg/dL (0.3-1.2); Blood Urea Nitrogen 12 mg/dL (9-23); Calcium 9.2 mg/dL (8.3-10.6); Calcium (Corrected) 9.2 mg/dL (8.5-10.1); Carbon Dioxide 29.8 mMol/L (20.0-31.0); Chloride 108 mMol/L (98-107); Creatinine (Component) 1.0 mg/dL (0.6-1.3); Estimated Creatinine Clearance 65.6 mL/min (>60); Globulin 2.8 gm/dL (2.3-3.5); Glucose 127 mg/dL (74-106); Osmolality,Calculated 288 (275-295); Potassium 4.4 mMol/L (3.4-5.1); Sodium 144 mMol/L (136-145); Total Protein 7.4 gm/dL (5.7-8.2); eGFR > 60 See Note
[2025-02-02] VITALS (7 sets, daily range): BP systolic 85–150; BP diastolic 45–81; PULSE 76–90; RESP 13–20; TEMP 36.2–36.6; O2SAT 93–99; BMI 50.5
--- NOTE | 2025-02-02 09:16 | PD.GYNPROC ---
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 Identity was confirmed by double identifiers and she was placed on the operating table.? General anesthesia was administered and she was now positioned on Julius stirrups in the dorsal lithotomy position.? The perineum was prepped in the usual sterile fashion and sterile drapes were applied.? A straight catheter was used to empty the bladder. A self-retaining speculum was introduced. Significant vaginal stenosis was noted and no identifiable cervix could be visualized. The apex of the vagina was grabbed using an Allis clamp and placed under traction and biopsies were obtained. The specimen was handed over to be sent to pathology. The site was visualized and noted to be adequately hemostatic. All instruments were now withdrawn.? The speculum was removed.? The patient was undraped and the skin was cleaned.? General anesthesia was reversed and she was taken to the recovery room in a stable and awake condition.? The patient tolerated the entire procedure well.? No acute complications were encountered.? All instrument, sponge and lap counts were correct x2. Estimated blood loss (ml): 2 Findings: No identifiable cervix with severely stenotic vagina. Surgical staff Operation Date: 02/02/25 08:45 <No data on this case meets the specified criteria> Diagnosis Discharge Diagnosis (1) ASCUS with positive high risk HPV: Status: Acute Problem List Completed Was Problem List Reviewed/Reconciled?: Yes
--- NOTE | 2025-02-02 09:18 | SUR.PHASEI ---
pt received from OR in recovery bay 5. pt awake and alert, breathing unlabored on room air. v/s stable. pt dressing peripad cdi. report received from Dr. Beauchamp and Latricia JONES.
--- NOTE | 2025-02-02 09:40 | SUR.PHASEII ---
pt able to tolerate oral fluids without difficulty swallowing or nausea/vomiting.
--- NOTE | 2025-02-02 10:19 | SUR.PHASEII ---
pt awake and alert, breathing unlabored on room air. v/s stable. pt dressing peripad cdi. pt able to ambulate to wheelchair with steady gait. d/c instructions given with daughter Kailey in room, all questions answered. pt d/c via wheelchair with all belongings.
== END 2025-02-02 10:19 | disposition home or self-care (01) ==
PROVIDERS: PCP Family Medicine; Referring Provider Obstetrics & Gynecology; Visit Provider Obstetrics & Gynecology
PROC: 0UBC7ZZ Excision of Cervix, Via Natural or Artificial Opening (ICD-10-PCS; CPT 57520; principal; 2025-02-02 08:30)
DX: N72 Inflammatory disease of cervix uteri (principal); N89.5 Stricture and atresia of vagina; Z01.810 Encounter for preprocedural cardiovascular examination
CPT/HCPCS: 57500; 36415; 80053; 84703; 85025; 86850; 86900; 86901; 93005; A4649; J0131; J0690; J1100; J2250; J2405; J2704; J3010; A9270

== ENCOUNTER 2025-02-17 09:54 | Outpatient (AMB) | payer MEDICAID, SELFPAY ==
--- NOTE | 2025-02-17 10:04 | GYNCLNT_ITS ---
Allergies/Home Meds Allergies & Medications Allergies No Known Allergies Allergy (Verified 02/17/25 10:04) Medication Reconciliation metformin 500 mg tablet 500 mg PO BID 11/12/19 [History Confirmed 02/17/25] amlodipine 10 mg tablet 10 mg PO DAILY 02/01/25 [History Confirmed 02/17/25] atorvastatin 20 mg tablet 20 mg PO DAILY 02/01/25 [History Confirmed 02/17/25] Intake Visit Data Collection New Patient or Established: Established Patient (seen at [facility] within 3 years) Reason for Visit:: TELE-MED RESULTS Consent obtained for Telemed Visit: Yes Seen by Clinical Staff ONLY (RN/MA): No Parts Counter 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 Required: No Do You Feel Safe at Home: Yes Authorities Contacted: N/A PCP or OBGYN visit in last 3 months: Yes Date of Last PCP or OBGYN visit: 02/02/25 Hx Now: No Are you currently on any form of Control: No Last menstrual period: 11/02/09 Pain Present Currently: No Pain Scale Used: Silva-Roach/Numerical Pain scale:: 0 Smoking Status Smoking Status: Never smoker Immunizations Flu Vaccine in the Last 12 Months: Yes Flu Vaccine Exclusion Criteria: No Exclusion Criteria and Already Received For Telemed visit only Telemed Video/Phone Visit: Yes Verbal consent obtained for Telemed visit?: Yes Verbal Consent witness name: ALONDRA CROW MA / MILDRED CROW MA 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 History Monthly: No Menopausal: Yes Currently sexually active: No If not currently sexually active, have you ever been sexually active: Yes 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 1. Little interest or pleasure in doing things: not at all 2. Feeling down, depressed, or hopeless: not at all Total score: 0 PHQ-9 3. Trouble falling or staying asleep, or sleeping too much: Not at all 4. Feeling tired or having little energy: Not at all 5. Poor appetite or overeating: Not at all 6. Feeling bad about yourself - or that you are a failure or have let yourself or your family down: Not at all 7. Trouble concentrating on things, such as reading the newspaper or watching television: Not at all 8. Moving or speaking so slowly that other people could have noticed? - Or the opposite - being so fidgety or restless that you have been moving around a lot more than usual: not at all 9. Thoughts that you would be better off or of hurting yourself in some way: Not at all Total score: 0 If you checked off any problems, how difficult have these problems made it for you to do your work, take care of things at home, or get along with other people?: not difficult at all Source: Developed by Drs. Alvarado Ocampo, Love Stein, Cuong Bella and colleagues, with an educational dorita from [employer]. Depression screen completed yes Social History Living Situation History Marital Status: Single Lives With: Family Housing: House Tobacco History Smoking Status: Never smoker Second Hand Smoke Exposure: No Alcohol History Alcohol Intake: Never Domestic Abuse History Do You Feel Safe at Home: Yes History of Present Illness HPI Narrative Liset Virgen presents for follow-up regarding recent biopsy results. The patient underwent biopsies which revealed chronic inflammation consistent with bacterial vaginosis, a bacterial infection of the vagina that occurs when there is a pH imbalance causing normal bacteria to overgrow. The patient has already been treated with antibiotics for this condition. There were no symptoms of precancer or cancer identified from the biopsies. She has a history of recent biopsy procedure with results discussed in current visit. The patient has been taking antibiotics for bacterial vaginosis. She is a 64-year-old female. 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 Diagnostic Test Results and Labs: - Cervical biopsies: Negative for pre-cancer and cancer. Chronic inflammation consistent with bacterial vaginosis. - Pap smear: Negative Exam General General Appearance: alert, in no apparent distress and healthy appearing Head Head exam: atraumatic Neck Neck exam: Present normal inspection and trachea midline Chest Chest inspection: Present normal inspection and symmetric chest wall rise External exam: Present normal external exam; Absent tenderness Neuro Neurological exam: Present oriented X3 Psych Psychiatric exam: Present normal affect and normal mood Office Procedures O[facility] Clinic LOC & Office Proc's Nursing/Assessment Patient Status: Established Patient OB Clinic Nursing Assessment: Medication Reconciliation and Update PMH in EMR OB Clinic Coordination of Care: Complex Care and Chronic Disease 1-5, Consent,records obtained, informed consent, Education Simp Pt/Fam, Results/Orders obtained and Staff clarify orders Established Patient Charge Established Patient Point Assignment: 75 Telehealth If patient is seen using Teleconference methods, complete New/Est section, but DO NOT yamila points only yamila the correct Telemed visit type Telemed Phone/Video with patient at home & ,PA,PARK NATURALIST: Yes Telemed Phone/Video with patient in Clinic w/,PARK NATURALIST,PA outside Clinic: Yes Assessment & Plan Diagnosis / Problem List (1) Acute vaginitis: Status: Acute (2) ASCUS with positive high risk HPV: Status: Acute Plan Cervical Biopsy Results: - All cervical biopsies returned negative for precancer and cancer. - Pathology revealed chronic inflammation consistent with bacterial infection. - No malignancy or premalignant changes identified. Plan: - Antibiotics already provided for bacterial vaginosis. - No further surgery or procedures required. - Next Pap smear in one year. - Given patient's age of 64, if next Pap smear is negative, no further Pap smears will be needed. Bacterial Vaginosis: - Bacterial infection of the vagina caused by pH imbalance leading to bacterial overgrowth. - This bacterial vaginosis is the likely cause of the chronic inflammation seen on cervical biopsy. Plan: - Antibiotics already administered for treatment. - Next Pap smear scheduled in one year. Advanced Care Planning Advance care planning discussed with:: patient
== END 2025-02-17 10:28 | disposition home or self-care (01) ==
LOC: HODSOBC 09:54
PROVIDERS: Supervising Provider Obstetrics & Gynecology; Visit Provider Obstetrics & Gynecology
DX: N76.0 Acute vaginitis (principal); R87.610 Atypical squamous cells of undetermined significance on cytologic smear of cervix (ASC-US); R87.810 Cervical high risk human papillomavirus (HPV) DNA test positive; E11.9 Type 2 diabetes mellitus without complications; I10 Essential (primary) hypertension; Z79.84 Long term (current) use of oral hypoglycemic drugs; Z79.899 Other long term (current) drug therapy
CPT/HCPCS: 99212; Q3014; G0463